=== PATIENT | female | born 1975 | race Caucasian/White ===

== ENCOUNTER 2017-01-12 07:57 | Inpatient (IN) | payer OTHER ==
[~2017-01-12 07:57] MED LIST: BENTYL10 MG PO; CIPRO500 MG PO; NO CURRENT MEDS; ZOFRAN ODT4 MG/UDTAB PO
[2017-01-13] MEDS ORDERED: NUCYNTA50 M1 PO (10:13)
[2017-01-13] MEDS ORDERED: NORCO 5-325 TA1 EACH PO (10:13)
[2017-01-13] MEDS ORDERED: CELEBREX200 M1 PO (10:14)
== END 2017-01-13 16:32 | DRG 572 ==
LOC: SHSC 07:57 → ORW 09:56 → PACU 13:09 → OBGF 14:43
PROVIDERS: ADMIT Specialist
PROC: 0HRV0JZ Replacement of Bilateral Breast with Synthetic Substitute, Open Approach (ICD-10-PCS; principal; 2017-01-12)
PROC: 0JB10ZZ Excision of Face Subcutaneous Tissue and Fascia, Open Approach (ICD-10-PCS; 2017-01-12)
DX: Z40.01 Encounter for prophylactic removal of breast (principal); Z85.71 Personal history of Hodgkin lymphoma; Z92.3 Personal history of irradiation
CPT/HCPCS: C1713; C1781; C1789; J0690; J2250; J2765; J2795; J3370